=== PATIENT | male | born 1975 | race African-American/Black ===

== ENCOUNTER 2022-04-06 15:06 | Emergency (ER) | payer OTHER, SELFPAY ==
[2022-04-06 15:10] VITALS: BP 134/95; PULSE 68; RESP 18; TEMP 36.4; O2SAT 99; BMI 26.3
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
== END 2022-04-06 21:37 | disposition home or self-care (01) ==
PROVIDERS: Emergency Provider Emergency Medicine Emergency Medical Services
DX: S62.307A Unspecified fracture of fifth metacarpal bone, left hand, initial encounter for closed fracture (principal); S80.211A Abrasion, right knee, initial encounter; M79.642 Pain in left hand; V29.008A Other motorcycle driver injured in collision with unspecified motor vehicles in nontraffic accident, initial encounter; Y93.9 Activity, unspecified; Y92.410 Unspecified street and highway as the place of occurrence of the external cause; Y99.9 Unspecified external cause status
CPT/HCPCS: 73110; 73130; 99282; 99283

== ENCOUNTER 2022-04-08 17:22 | Outpatient (REF) | payer OTHER, SELFPAY ==
--- NOTE | ~2022-04-08 | XR_ITS ---
EXAMINATION: XR HAND, LEFT CLINICAL INFORMATION: M79.642 - Pain in left hand. Fracture base fifth metacarpal. COMPARISON: Radiographs left hand and wrist 04/06/2022 TECHNIQUE: Left hand is imaged in 3 views. FINDINGS: There is a fracture fifth metacarpal as recently described. In addition, a subtle 0.5 cm cyst or enchondroma is present at junction base and proximal shaft fifth metacarpal. No matrix mineralization. There is no periostitis or destructive process. The remainder of the bony structures are unremarkable. XR/XR hand LT min 3V IMPRESSION: 1. Fracture base 5th metacarpal. 2. Small cyst or enchondroma junction base and proximal shaft fifth metacarpal, 5mm.
== END 2022-04-08 17:23 | disposition home or self-care (01) ==
LOC: HO.HOSX 17:22
PROVIDERS: Visit Provider Orthopaedic Surgery
DX: M79.642 Pain in left hand (principal)
CPT/HCPCS: 73130

== ENCOUNTER 2022-04-09 13:21 | Outpatient (REF) | payer OTHER, SELFPAY ==
--- NOTE | ~2022-04-09 | XR_ITS ---
EXAMINATION: XR WRIST, RIGHT CLINICAL INFORMATION: Pain. COMPARISON: None TECHNIQUE: PA, lateral, and oblique views of the right wrist. FINDINGS: The bones and soft tissues are normal. No fracture. Alignment is anatomic with normal joint spaces. No erosions or abnormal soft tissue calcifications. XR/XR wrist RT min 3V IMPRESSION: Normal right wrist.
== END 2022-04-09 13:22 | disposition home or self-care (01) ==
LOC: HO.HOSX 13:21
PROVIDERS: Visit Provider Orthopaedic Surgery
DX: M25.531 Pain in right wrist (principal); M79.642 Pain in left hand; S62.317A Displaced fracture of base of fifth metacarpal bone, left hand, initial encounter for closed fracture; V29.39XA Other motorcycle (driver) (passenger) injured in unspecified nontraffic accident, initial encounter; Y93.55 Activity, bike riding; Y92.481 Parking lot as the place of occurrence of the external cause; Y99.8 Other external cause status
CPT/HCPCS: 73110; 99202

== ENCOUNTER 2022-04-22 17:32 | Outpatient (REF) | payer OTHER, SELFPAY | END 2022-04-22 17:33 | disposition home or self-care (01) | LOC: HO.HOSX 17:32 | PROVIDERS: Visit Provider Orthopaedic Surgery | DX: Z13.89 Encounter for screening for other disorder (principal) ==

== ENCOUNTER 2022-04-24 07:14 | Outpatient (REF) | payer OTHER, SELFPAY ==
[2022-04-24 10:23] LABS: MANUAL DIFF FLAG NO
[2022-04-24 10:35] LABS: Basophils Percent Auto 0.9 % (0-2); Eosinophils Absolute Auto 0.1 X10*3/uL (0.0-0.4); Eosinophils Percent Auto 1.9 % (0-4); Hematocrit 45.4 % (42.0-52.0); Hemoglobin 14.5 g/dl (14.0-18.0); Imm Gran Abs Auto 0.02 X10*3/uL (0.00-0.03); Imm Gran Pct Auto 0.5 % (0.0-0.4); Lymphocytes Absolute Auto 1.6 X10*3/uL (1.2-4.9); Lymphocytes Percent Auto 36.8 % (20-40); Mean Corpuscular HGB Conc 31.9 g/dl (31.0-36.0); Mean Corpuscular Hemoglobin 27.1 pg (27.0-33.0); Mean Corpuscular Volume 84.9 fL (80.0-98.0); Mean Platelet Volume 11.9 fL (9.4-12.4); Monocytes Absolute Auto 0.4 X10*3/uL (0.1-1.2); Monocytes Percent Auto 9.7 % (2-11); Neutrophils Absolute Auto 2.1 x10*3/uL (2.0-8.3); Neutrophils Percent Auto 50.2 % (45-73); Platelet Count 157 X10*3/uL (160-400); Red Blood Count 5.35 X10*6/uL (4.60-5.80); Red Cell Distribution Width 13.4 % (11.0-16.0); White Blood Count 4.2 X10*3/uL (4.8-10.8)
[2022-04-24 11:19] LABS: Appearance Urine Clear; Color Urine Yellow; Glucose Urine UA Negative (Negative); Leukocyte Esterase Urine Negative (Negative); Nitrite Urine Negative (Negative); PH 6.5 (5.0-9.0); Urine Blood Negative (Negative); Urine Ketones Negative (Negative); Urine Protein Negative (Neg-Trace)
[2022-04-24 11:23] LABS: Creatinine Urine 229.03 mg/dL; Microalbum/Creatinine Ratio Ur 2.1 ug/mg cr
[2022-04-24 11:39] LABS: Alanine Aminotransferase 31 U/L (0-40); Albumin Level 4.4 g/dL (3.5-5.0); Alkaline Phosphatase 59 U/L (39-117); Anion Gap 16 (12-20); Aspartate Amino Transferase 26 U/L (5-37); Bilirubin Total 0.2 mg/dL (0.0-1.0); Blood Urea Nitrogen 11 mg/dL (9-16); Calcium 9.4 mg/dL (8.4-10.2); Carbon Dioxide 28 mmol/L (22-29); Chloride 104 mmol/L (96-108); Cholesterol 185 mg/dL; Estimated Glomerular Filt Rate > 60; Glucose Fasting 95 mg/dL (60-99); HDL Cholesterol 44 mg/dL; LDL Cholesterol Calculated 131 mg/dl; Potassium 4.5 mmol/L (3.3-5.1); Sodium 143 mmol/L (135-145); Total Protein 7.4 g/dL (6.5-8.0); Triglycerides 52 mg/dL
[2022-04-24 11:49] LABS: TSH reflex Free T4 0.76 uIU/mL (0.32-4.0)
[2022-04-24 12:21] LABS: Prostate Specific Antigen Scr 16.61 ng/mL (<0.05-4.0)
== END 2022-04-24 07:15 | disposition home or self-care (01) ==
LOC: HO.WFDLDS 07:14
PROVIDERS: Visit Provider Family Medicine
DX: Z00.00 Encounter for general adult medical examination without abnormal findings (principal); Z12.5 Encounter for screening for malignant neoplasm of prostate; I10 Essential (primary) hypertension
CPT/HCPCS: 29085; 36415; 80053; 80061; 81003; 82043; 84153; 84443; 85025; 99212

== ENCOUNTER 2022-04-24 07:17 | Outpatient (REF) | payer OTHER, SELFPAY ==
--- NOTE | ~2022-04-24 | XR_ITS ---
EXAMINATION: XR HAND, LEFT CLINICAL INFORMATION: Left hand pain COMPARISON: None TECHNIQUE: PA, lateral, and oblique views of the left hand. FINDINGS: There is the acute fracture of the base of the fifth metacarpal with possible intra-articular extension into the CMC joint. Scaphoid appears intact. XR/XR hand LT min 3V IMPRESSION: Acute fracture of the base of the fifth metacarpal with possible intra-articular extension into the CMC joint.
== END 2022-04-24 07:18 | disposition home or self-care (01) ==
LOC: HO.HOSX 07:17
PROVIDERS: Visit Provider Physician Assistant
DX: M79.642 Pain in left hand (principal)
CPT/HCPCS: 73130

== ENCOUNTER 2022-06-05 06:46 | Outpatient (REF) | payer OTHER, SELFPAY ==
--- NOTE | ~2022-06-05 | XR_ITS ---
EXAMINATION: XR HAND, LEFT CLINICAL INFORMATION: Left hand pain COMPARISON: 04/24/2022 TECHNIQUE: PA, lateral, and oblique views of the left hand. FINDINGS: Fracture at the base of the fifth metacarpal is again noted. Alignment is unchanged from previous. Joint spaces are maintained. Soft tissues appear unremarkable. XR/XR hand LT min 3V IMPRESSION: Unchanged alignment of the fifth metacarpal base fracture.
== END 2022-06-05 06:47 | disposition home or self-care (01) ==
LOC: HO.HOSX 06:46
PROVIDERS: Visit Provider Physician Assistant
DX: M79.642 Pain in left hand (principal)
CPT/HCPCS: 73130

== ENCOUNTER → 2022-06-05 09:00 | Outpatient (BNVA) | payer OTHER, SELFPAY | PROVIDERS: PCP Family Medicine; Visit Provider Physician Assistant | DX: S62.315D Displaced fracture of base of fourth metacarpal bone, left hand, subsequent encounter for fracture with routine healing (principal); S62.317D Displaced fracture of base of fifth metacarpal bone, left hand, subsequent encounter for fracture with routine healing | CPT/HCPCS: 99212 ==

== ENCOUNTER 2022-07-17 12:27 | Outpatient (REF) | payer OTHER, SELFPAY ==
--- NOTE | ~2022-07-17 | XR_ITS ---
EXAMINATION: XR HAND, LEFT CLINICAL INFORMATION: Fracture base fifth metacarpal. Follow-up. COMPARISON: Radiographs left hand 06/05/2022, 04/24/2022 TECHNIQUE: Left hand is imaged in 3 views. FINDINGS: Fracture base fifth metacarpal shows no change in alignment. Fracture line is less distinct. There is no acute fracture or dislocation or destructive process. XR/XR hand LT min 3V IMPRESSION: Healing fracture base fifth metacarpal.
== END 2022-07-17 12:28 | disposition home or self-care (01) ==
LOC: HO.HOSX 12:27
PROVIDERS: Visit Provider Physician Assistant
DX: M65.4 Radial styloid tenosynovitis [de Quervain] (principal)
CPT/HCPCS: 73130

== ENCOUNTER 2022-07-22 07:25 | Outpatient (REF) | payer OTHER, SELFPAY ==
[2022-07-22 11:49] LABS: Hemoglobin 15.5 g/dl (14.0-18.0); Mean Corpuscular HGB Conc 31.6 g/dl (31.0-36.0); Mean Corpuscular Volume 85.4 fL (80.0-98.0); Mean Platelet Volume 11.7 fL (9.4-12.4); Platelet Count 175 X10*3/uL (160-400); Red Blood Count 5.74 X10*6/uL (4.60-5.80); Red Cell Distribution Width 14.1 % (11.0-16.0); White Blood Count 5.6 X10*3/uL (4.8-10.8)
[2022-07-22 13:00] LABS: Alanine Aminotransferase 36 U/L (0-40); Albumin Level 4.4 g/dL (3.5-5.0); Alkaline Phosphatase 50 U/L (39-117); Anion Gap 14 (12-20); Aspartate Amino Transferase 27 U/L (5-37); Bilirubin Total 0.5 mg/dL (0.0-1.0); Blood Urea Nitrogen 10 mg/dL (9-16); Calcium 9.7 mg/dL (8.4-10.2); Carbon Dioxide 30 mmol/L (22-29); Chloride 100 mmol/L (96-108); Cholesterol 190 mg/dL; Estimated Glomerular Filt Rate > 60; Glucose Fasting 94 mg/dL (60-99); HDL Cholesterol 48 mg/dL; LDL Cholesterol Calculated 123 mg/dl; Potassium 4.4 mmol/L (3.3-5.1); Sodium 140 mmol/L (135-145); Total Protein 7.3 g/dL (6.5-8.0); Triglycerides 98 mg/dL
[2022-07-22 13:16] LABS: TSH reflex Free T4 1.42 uIU/mL (0.32-4.0)
[2022-07-26 19:03] LABS: PSA, Ultra Sensitive 16.91 ng/mL
== END 2022-07-22 07:26 | disposition home or self-care (01) ==
LOC: HO.WFDLDS 07:25
PROVIDERS: Visit Provider Nurse Practitioner Family
DX: Z00.00 Encounter for general adult medical examination without abnormal findings (principal); Z12.5 Encounter for screening for malignant neoplasm of prostate
CPT/HCPCS: 36415; 80053; 80061; 84153; 84443; 85027

== ENCOUNTER 2022-08-13 14:00 | Outpatient (RCR) | payer OTHER, SELFPAY ==
--- NOTE | 2022-07-07 16:38 | MHC.OT.EP ---
[address] [phone] Occupational Therapy Plan of Care Date of Evaluation: 07/07/22 Diagnosis: Displaced fracture base of right fourth MC Displaced fracture base of left fifth MC Assessment: Frequency and Duration: The patient will be seen 2x wk x 6 wks Short Term Goals: Demo indep with HEP Wrist ext to > 45 deg Wrist flex to > 45 deg Thumb op to small finger Digits 2-5 to palm Tolerate light hand and wrist strengthening Long-Term Goals: Wrist ext to 60 deg Wrist flex to 55 deg Wrist ulnar dev to > 25 deg Digits 2-5 to DPC Left operating room aide to > 45 lb Demonstrate a safe lift > 25 lb Quick DASH to <20 pts Treatment Plan: Therapeutic Exercise Therapeutic Activity Home Exercise Program Patient Education ADL Training Ultrasound Electronically Signed By: Chiquita Burrows OT CHT CLT Please Sign and return to therapist. Thank you once again for your referral.
--- NOTE | 2022-07-16 16:27 | MHC.OT.OP ---
[address] [phone] F: [phone] Occupational Therapy Progress Note Diagnosis: Displaced fracture base of left fourth MC Displaced fracture base of left fifth MC Date of Surgery: Date of Evaluation: 07/07/22 Treatments to Date: 3 Cancellations to Date: 0 No Shows to Date: 0 Subjective: Pt reports removing his wrist support one or two times a day. When I start using it a four Pain Score: 4 Pain Location: Left hand and wrist Objective Measures: 07/16/22 AROM thumb abd 45 deg, MP 35 deg , IP 35 deg . OP to ring pad Digits 2-5 MCPj flex 70 deg, 70 deg , 70 deg , 60 deg Wrist ext 45 deg flex 45 deg radial dev 10 deg , ulnar dev 5 deg Status: Assessment: Left wrist and digits stiff. Digit flexion to DPC after light ther ex and ther activity for digit flexion Pt will benefit from increased frequency of ther ex during the day. MD follow up tomorrow Short Term Goals: Demo indep with HEP Wrist ext to > 45 deg Wrist flex to > 45 deg Thumb op to small finger Digits 2-5 to palm Tolerate light hand and wrist strengthening [facility] Goals: Wrist ext to 60 deg Wrist flex to 55 deg Wrist ulnar dev to > 25 deg Digits 2-5 to DPC Left meat wrapper to > 45 lb Demonstrate a safe lift > 25 lb Quick DASH to <20 pts Frequency and Duration: The patient will be seen 2x wk x 6 wks Treatment Plan: Therapeutic Exercise Therapeutic Activity Home Exercise Program Patient Education Electronically Signed By: Chiquita Burrows OT CHT CLT Reviewed/agree with student documentation: Therapist:
--- NOTE | 2022-08-27 09:38 | MHC.OT.DC ---
[address] [phone] F: [phone] Occupational Therapy Discharge Note Provider: Chemo Collins Diagnosis: Displaced fracture base of left fourth MC Displaced fracture base of left fifth MC Date of Surgery: Date of Evaluation: 07/07/22 Date of Discharge: 08/27/22 Treatments to Date: 10 Cancellations to Date: 2 No Shows to Date: 0 Discharge Status: Independent with HEP Patient Elected to Stop Discharge Summary: Wrist ext 55 deg flex 55 deg radial dev 10 deg , ulnar dev 25 deg ( Plateau in ROM. Max PROM 60 deg Load Dispatcher Local R 105 lb L 5 lb from 2 lb . Not improving. Low pain with all resistive ex and partial wt bearing. Pt is highly motivated to regain mobility and strength. He is indep with ROM ther ex and strengthening ther ex. Pt cancelled last two appointsments due to work location re assignment Electronically Signed By: Chiquita Burrows OT CHT CLT Reviewed/agree with student documentation: Therapist: Please Sign and return to therapist, thank you for your referral.
== END 2022-08-27 09:38 | disposition home or self-care (01) ==
LOC: HO.OT 14:00
PROVIDERS: PCP Family Medicine; Visit Provider Physician Assistant
DX: S62.315D Displaced fracture of base of fourth metacarpal bone, left hand, subsequent encounter for fracture with routine healing (principal); S62.317D Displaced fracture of base of fifth metacarpal bone, left hand, subsequent encounter for fracture with routine healing
CPT/HCPCS: 97033; 97035; 97110; 97165; 97530